=== PATIENT | female | born 1970 | race Caucasian/White ===

== ENCOUNTER 2016-08-15 08:21 | Day surgery (SDC) | payer OTHER ==
[~2016-08-15] VITALS: Ht 152.4 cm; Wt 60.1 kg
[2016-08-15] VITALS (14 sets, daily range): BP systolic 109–137; BP diastolic 59–84; PULSE 56–72; RESP 12–16; Ht 152.4 cm; Wt 60.1 kg
[2016-08-15] MEDS ORDERED: GLYCOPYRROLATE 0.4 MG INJ ONE (09:56)
[2016-08-15] MEDS ORDERED: ROCURONIUM 50 MG INJ ONE (09:56)
[2016-08-15] MEDS ORDERED: LIDOCAINE 2% (SDV) 5 ML INJ ONE (09:56)
[2016-08-15] MEDS ORDERED: NEOSTIGMINE 3 MG/3 ML SYRINGE ONE (09:56)
[2016-08-15] MEDS ORDERED: PROPOFOL 20 ML ONE (09:56)
[2016-08-15] MEDS ORDERED: MIDAZOLAM 1 MG/ML 2 ML INJ ONE (09:57)
[2016-08-15] MEDS ORDERED: FENTAnyl 50 MCG/ML VIAL ONE (09:57)
[2016-08-15] MEDS ORDERED: CEFAZOLIN 1 GM INJ ONE (09:59)
[2016-08-15] MEDS ORDERED: ONDANSETRON 4 MG INJ IV PRN (10:00)
[2016-08-15] MEDS ORDERED: EPHEDrine SULFATE 50 MG/5 ML SYG IV PRN (10:00)
[2016-08-15] MEDS ORDERED: morphine (1 MG/ML) 10ML SYRINGE IV PRN ×3 (10:00)
[2016-08-15] MEDS ORDERED: MIDAZOLAM 1 MG/ML 2 ML INJ IV PRN (10:00)
[2016-08-15] MEDS ORDERED: DIPHENHYDRAMINE 50 MG INJ IV PRN (10:00)
[2016-08-15] MEDS ORDERED: MEPERIDINE 25 MG INJ IV PRN (10:00)
[2016-08-15] MEDS ORDERED: FENTAnyl 50 MCG/ML VIAL IV PRN ×2 (10:00)
[2016-08-15] MEDS ORDERED: hydrALAzine 20 MG INJ IV PRN (10:00)
[2016-08-15] MEDS ORDERED: HYDROmorphONE (0.2 MG/ML) 10ML SYG IV PRN ×3 (10:00)
[2016-08-15] MEDS ORDERED: ONDANSETRON 4 MG INJ ONE (10:00)
[2016-08-15] MEDS ORDERED: ATROPINE 1 MG/10 ML SYRINGE IV PRN (10:00)
[2016-08-15] MEDS ORDERED: OXYCODONE/ACETAMINOPHEN (5/325) TAB PO PRN ×2 (10:00)
[2016-08-15] MEDS ORDERED: LABETALOL HCL 20MG INJ IV PRN (10:00)
--- NOTE | 2016-08-15 12:11 | PDOCDIS ---
Discharge Instructions DIAGNOSIS Discharge Diagnosis: Menometrorrhagia plan pending pathology report CONDITION Patient Condition: Good HOME CARE INSTRUCTIONS: Diet Instructions: Regular ACTIVITY: Activity Restrictions: No Sexual Activity Bathing Restrictions: Shower FOLLOW UP/APPOINTMENTS Appointments Appointment office in 1 week KEVIN ALLISON MD Aug 15, 2016 12:11
--- NOTE | 2016-08-15 12:15 | DS ---
Date/Time of Note Date/Time of Note DATE: 08/15/16 TIME: 12:12 Discharge Summary Admission/Discharge Info Admit Date/Time August 15, 2016 at 1250 46 years old female admitted to [facility] because of menometrorrhagia for a diagnostic curettage to rule out any endometrial abnormality Discharge Date/Time August 15, 2069 at 1500 Final Diagnosis Menometrorrhagia pending pathology report Patient Condition: Good Procedures Diagnostic curettage Hx of Present Illness Over several years but has become worse during the past 3 months Hospital Course Good Follow-up Plan Appointment office in 1 week KEVIN ALLISON MD Aug 15, 2016 12:15
[2016-08-15] MEDS ORDERED: IBUPROFEN 600 MG TAB PO PRN (12:30)
[2016-08-15] MEDS ORDERED: KETOROLAC 30 MG INJ IV PRN (12:30)
--- NOTE | 2016-08-15 12:57 | OPR ---
DATE OF OPERATION: 08/15/2016 PREOPERATIVE DIAGNOSES: Menometrorrhagia, hypermenorrhea. POSTOPERATIVE DIAGNOSIS: Pending pathology report dilatation. OPERATION PERFORMED: Diagnostic curettage. SURGEON: Kevin Allison MD ANESTHESIA: General. ANESTHESIOLOGIST: Henyr Peoples MD DETAILS OF THE PROCEDURE: Under satisfactory general anesthesia, the patient was prepped and draped and placed in dorsal lithotomy position. Bimanual pelvic examination normal marital introitus. No rmal vagina. Cervix nulliparous. Uterus ___ normal size. Adnexa negative. Weighted speculum intr oduced into the vagina. Anterior cervical lip grasped by a Delbert tenaculum. Uterine cavity sounded measured 9 cm to 10 cm. Cervical dilatation further advanced with the Don dilator. A small sharp curet inserted into the vagina starting at 12 o'clock counterclockwise curetted the entire uterine cavity gently and specimen was obtained, submitted for the pathology. At the end of the procedure, the patient's vital signs were stable. She tolerated procedure well and transferred to [facility] in a good condition. Dictated By: KEVIN ALLISON MD HF/NTS Conf#: [id number] DID#: [id number]
== END 2016-08-15 14:16 | disposition home or self-care (01) ==
LOC: SDS 08:21
PROVIDERS: ATTEND Obstetrics & Gynecology
DX: N92.1 Excessive and frequent menstruation with irregular cycle (principal)
CPT/HCPCS: 58120; 88305; J0690; J1885; J2175; J2250; J2405; J2710; J3010; Z7512; Z7610

== ENCOUNTER 2017-08-04 09:27 | Day surgery (SDC) | END 2017-08-04 15:55 | disposition home or self-care (01) ==